=== PATIENT | female | born 1965 | race Caucasian/White ===

== ENCOUNTER 2023-07-07 11:04 | Emergency (ER) | payer BC ==
[2023-07-07 11:24] VITALS: TEMP 97.9
[2023-07-07] MEDS ORDERED: DECADRON 10MG INJ. ONE (11:37)
[2023-07-07] MEDS ORDERED: TORAdol 30 mg Injection ONE (11:37)
[2023-07-07] MEDS: TORAdol 30 mg Injection IV ONE (11:38)
[2023-07-07] MEDS: DECADRON 10MG INJ. IV ONE (11:38)
--- NOTE | 2023-07-07 11:43 | ERPHSYRPT ---
- History of Present Illness Time Seen by Provider: 07/07/23 11:30 Source: patient Exam Limitations: no limitations Patient Subjective Stated Complaint: pt states that she lifted a heavy patient last night. 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 Patient states she worked yesterday. Today she developed severe low back pain that radiated down her thigh. Patient states numbness extends down to her foot. No trauma no fever no recent back procedures no saddle anesthesia. No change in bowel bladder function. Upon EMS arrival patient was treated with fentanyl. Shortly after the fentanyl was administered patient became slightly hypoxic and was placed on oxygen upon arrival. Patient's pain described as an ache that is moderate to severe in intensity. Patient states her pain is never been "this bad". Patient otherwise feels well. She voices no other complaints or concerns at this time Portions of this note were created with voice recognition technology. There may be grammatical, spelling, punctuation or sound alike errors Timing/Duration: today Method of Injury: unknown Quality: aching, other (Numbness down right leg) Back Pain Location: lumbar spine Back Pain Radiation: lower legs Severity of Pain-Max: severe Severity of Pain-Current: moderate Modifying Factors: Improves With: movement Associated Symptoms: denies symptoms Previous symptoms: same symptoms as today (Similar to today but not as intense) Allergies/Adverse Reactions: latex Allergy (Verified 07/07/23 11:09) Anaphylactic Reaction morphine Allergy (Verified 07/07/23 11:09) Vomiting Hx Tetanus, Diphtheria Vaccination/Date Given: Yes Hx Influenza Vaccination/Date Given: No Hx Pneumococcal Vaccination/Date Given: No Immunizations Up to Date: No Travel Risk - International Travel Have you traveled outside of the country in past 3 weeks: No - Emerging Infectious Disease Are you exhibiting symptoms associated with any current EIDs: No - Review of Systems Constitutional: No Symptoms, No Fever, No Chills Eyes: No Symptoms Ears, Nose, & Throat: No Symptoms Respiratory: No Symptoms, No Cough, No Dyspnea Cardiac: No Symptoms, No Chest Pain, No Edema, No Syncope Abdominal/Gastrointestinal: No Symptoms, No Abdominal Pain, No Nausea, No Vomiting, No Diarrhea Genitourinary Symptoms: No Symptoms, No Dysuria Musculoskeletal: No Symptoms, No Back Pain, No Neck Pain Skin: No Symptoms, No Rash Neurological: No Symptoms, No Dizziness, No Focal Weakness, No Sensory Changes Psychological: No Symptoms Endocrine: No Symptoms Hematologic/Lymphatic: No Symptoms Immunological/Allergic: No Symptoms All Other Systems: Reviewed and Negative - Past Medical History Pertinent Past Medical History: No Other Medical History: chronic back - Past Surgical History Past Surgical History: Yes Gastrointestinal: Appendectomy - Social History Smoking Status: Current every day smoker How long have you smoked: 35 years Exposure to second hand smoke: Yes Drug Use: none - Nursing Vital Signs Nursing Vital Signs: Initial Vital Signs Temperature 97.9 F 07/07/23 11:06 Pulse Rate 62 07/07/23 11:06 Respiratory Rate 14 07/07/23 11:06 Blood Pressure 136/78 07/07/23 11:06 O2 Sat by Pulse Oximetry 92 L 07/07/23 11:06 Pain Scale Pain Intensity [] 5 Pain Intensity 3 - Physical Exam General Appearance: no apparent distress, alert Eye Exam: PERRL/EOMI, eyes nml inspection Ears, Nose, Throat Exam: normal ENT inspection Neck Exam: normal inspection, non-tender, supple, full range of motion, No meningismus, No midline tenderness Respiratory Exam: normal breath sounds, lungs clear, No respiratory distress Cardiovascular Exam: regular rate/rhythm, normal heart sounds Gastrointestinal Exam: soft, No tenderness, No mass Extremity Exam: normal inspection, normal range of motion, No calf tenderness, No pedal edema Neurologic Exam: alert, oriented x 3, cooperative, employment counselor II-XII nml as tested, normal mood/affect, nml station & gait, sensation nml, No motor deficits Skin Exam: normal color, warm, dry, No rash Lymphatic Exam: No adenopathy SpO2 Interpretation: normal SpO2: 92 O2 Delivery: Room Air - Course Nursing assessment & vital signs reviewed: Yes - CT Exams Lumbar Spine CT Interpretation: Tele-radiologist Report (Mild broad-based disc bulge at L4- S1, lumbar dextroscoliosis, L3 anterolisthesis, 2 mm, aortic calcification) Ordered Tests: Active Orders 24 hr Category Date Time Status LUMBAR SPINE W/O [CT] Stat Exams 07/07/23 11:34 Completed Ultrasound Unilateral Extremities [VENOUS UNILAT/ Exams 07/07/23 13:19 Completed LIMITED EXTREMIT] [US] Stat Medication Summary Discontinued Medications Generic Name Dose Route Start Last Admin Trade Name Marvin PRN Reason Stop Dose Admin Dexamethasone Sodium Phosphate 10 mg 07/07/23 11:35 07/07/23 11:38 Dexamethasone Sod Phosphate 10 Mg/Ml IV 07/07/23 11:36 10 mg STAT ONE Administration Dexamethasone Sodium Phosphate Confirm 07/07/23 11:37 Dexamethasone Sod Phosphate 10 Mg/Ml Administered 07/07/23 11:38 Dose 10 mg .ROUTE .STK-MED ONE Ketorolac Tromethamine 30 mg 07/07/23 11:34 07/07/23 11:38 Ketorolac Tromethamine 30 Mg/Ml Inj IV 07/07/23 11:35 30 mg STAT ONE Administration Ketorolac Tromethamine Confirm 07/07/23 11:37 Ketorolac Tromethamine 30 Mg/Ml Inj Administered 07/07/23 11:38 Dose 30 mg .ROUTE .STK-MED ONE - Progress Progress: improved Progress Note: Patient reassessed. Pain improved. CT lumbar spine reveals broad-based disc bulge at L4-S1, lumbar dextroscoliosis with a 2 mm anterolisthesis of L3 on L4. Aortic calcifications Patient still having hard time moving however she declined admission. She states she would rather go home. We are unable to provide patient with a walker. We found that walker is a $57 at [facility]. Patient states that if we can give her a crutch she would be well enough to bean picker a walker at [facility]. Daughter at bedside. Ultrasound right lower extremity negative for DVT. No indication for further workup. Complexity problem addressed is moderate acute complicated. No critical care time. Complexity data reviewed and analyzed is moderate. Test ordered test reviewed results analyzed and correlated clinically with history and physical exam. Risk of complication and or risk of morbidity/mortality patient management is moderate. Vital stable. Time spent to discharge patient is approximately 20 minutes. Plan of care established for shared decision making. No social determinants of health present impede follow-up. Portions of this note were created with voice recognition technology. There may be grammatical, spelling, punctuation or sound alike errors 07/07/23 14:17 Counseled pt/family regarding: diagnosis, need for follow-up, rad results - Departure Departure Disposition: Home Clinical Impression: Sciatica, Low back pain Condition: Stable Critical Care Time: No Referrals: DOCTOR,NO FAMILY [Primary Care Provider] - Follow up/PCP as directed Additional Instructions: Discharge/Care Plan JOSE SIMON was seen on 07/07/23 in the Emergency Room. The patient was counseled regarding Diagnosis,Lab results, Imaging studies, need for follow up and when to return to the Emergency Room. Prescriptions given: Discharge Note I have spoken with the patient and/or caregivers. I have explained the patient's condition, diagnosis and treatment plan based on the information available to me at this time. I have answered the patient's and/or caregiver's questions and addressed any concerns. The patient and/or caregivers have as good understanding of the patient's diagnosis, condition and treatment plan as can be expected at this point. The vital signs have been stable. The patient's condition is stable and appropriate for discharge from the emergency department. The patient will pursue further outpatient evaluation with the primary care physician or other designated or consulting physician as outlined in the discharge instructions. The patient and/or caregivers are agreeable to this plan of care and follow-up instructions have been explained in detail. The patient and/or caregivers have received these instruction. The patient/and or caregivers are aware that any significant change in condition or worsening of symptoms should prompt an immediate return to this or the closest emergency department or call 911. Prescriptions: Ketorolac Trometh 10 mg Tab [TORAdol 10 MG TABLET] 10 mg PO TID 5 Days #15 tablet
--- NOTE | 2023-07-07 12:54 | XRAY ---
Indication: Low back pain. Right leg weakness. Multiple contiguous images obtained through the lumbar spine. Sagittal and coronal reformatted images obtained. Comparison: None Axial images demonstrates mild broad-based disc bulge at L4-S1 disc levels along with tiny L4-S1 degenerative vacuum disc phenomena. Minimal/mild L2-S1 degenerative endplate spurring. Facets are symmetric with mild/moderate L3-L5 degenerative facet arthropathy. No acute fracture, suspicious bony lesions, or spinal canal stenosis. Sagittal and coronal reformatted images demonstrates normal lumbar lordosis with mild dextroscoliosis centered at L3. Minimal 1-2 mm anterolisthesis L3 on L4. Minimal L5-S1 disc space narrowing. No acute compression fracture. Visualized noncontrasted soft tissues demonstrates mild scattered aortoiliac calcifications. Impression: 1. L4-S1 broad-based disc bulge with vacuum disc phenomena and minimal grade 1 anterolisthesis L3 on L4. Outpatient MRI lumbar spine may yield further information. 2. Incidental mild dextroscoliosis and mild arteriosclerotic disease.
[2023-07-07 13:21] VITALS: RESP 18
--- NOTE | 2023-07-07 13:54 | XRAY ---
Indication: Leg swelling. Two-dimensional sonogram and color Doppler imaging major venous vessels right leg performed. Comparison: None No thrombus seen in the examined deep venous vessels right leg including greater saphenous vein. Veins demonstrate normal compressibility. Venous waveforms are normal with and without augmentation. Impression: Right leg negative for DVT.
[2023-07-07 14:03] VITALS: BP 138/71; PULSE 63
[2023-07-07 14:21] VITALS: O2SAT 92
[2023-07-07 15:00] LABS: Appearance Clear (Clear); Bacteria Rare /HPF (None Seen); Bilirubin Negative (Negative); Blood Negative (Negative); Epithelial Cells Rare /HPF (None Seen); Glucose, Urine Negative (Negative); Hyaline Casts NONE SEEN /LPF (0-2); Ketones Negative (Negative); Leukocyte Esterase Trace (Negative); Nitrite Negative (Negative); Ph 6.5 (4.6-8.0); Protein,Urine Dip Negative (Negative); RBC 0-2 /HPF (0-5)
[2023-07-07 15:02] LABS: ADD URINE CULTURE? NO (NO)
== END 2023-07-07 15:07 | disposition home or self-care (01) ==
LOC: ED 11:04
DX: M54.31 Sciatica, right side (principal); M54.50 Low back pain, unspecified; Z72.0 Tobacco use
CPT/HCPCS: 36000; 72131; 81001; 93971; 96374; 99284; J1100; J1885